=== PATIENT | male | born 1950 | race Caucasian/White ===

== ENCOUNTER 2018-05-13 10:16 | Outpatient (CLI) | payer BC | END 2018-05-13 10:17 | disposition home or self-care (01) | LOC: C.PAT 10:16 | DX: Z01.818 Encounter for other preprocedural examination (principal); K40.20 Bilateral inguinal hernia, without obstruction or gangrene, not specified as recurrent ==

== ENCOUNTER 2018-05-21 08:16 | Outpatient (CLI) | payer BC | END 2018-05-21 08:17 | disposition home or self-care (01) | LOC: C.CARD 08:17 | DX: Z01.810 Encounter for preprocedural cardiovascular examination (principal); E11.9 Type 2 diabetes mellitus without complications; I10 Essential (primary) hypertension; E78.2 Mixed hyperlipidemia ==

== ENCOUNTER 2018-06-02 06:03 | Day surgery (SDC) | payer BC ==
[2018-05-13 10:40] VITALS: BMI 18.1
[2018-06-02] MEDS ORDERED: Lidocaine/Epinephrine 1% 1:100000 10 ML IJ ONE (07:33)
[2018-06-02] MEDS ORDERED: Bupivacaine 0.25% 20 ML INJ IJ ONE (07:33)
[2018-06-02] MEDS ORDERED: ceFAZolin 1 gm in NS 2 GM/200 ML BAG IVPB ONE (07:33)
[2018-06-02] MEDS ORDERED: Midazolam 2 MG/2 ML VIAL ONE (07:47)
[2018-06-02] MEDS ORDERED: Propofol 10 mg/ml Inj (20 ML) ONE (07:47)
[2018-06-02] MEDS ORDERED: Bupivacaine Liposomal Inj 20 ml INFIL ONE (08:20)
[2018-06-02] MEDS ORDERED: Sodium Chloride 0.9% 40 ML IV ONE (08:52)
[2018-06-02] MEDS ORDERED: HYDROmorphone 0.5 mg/0.5 ml ISec IVP PRN (10:36)
[2018-06-02] MEDS ORDERED: (Novolin R) Insulin Human Regular 100 units/ml vial IVP ONE (10:51)
--- NOTE | 2018-06-02 12:11 | PCM.SURG1 ---
Surgeon's Initial Post Op Note - Surgeon's Notes Surgeon: Dorota Diez MD Clam Bed Worker: FRANKO Parada Type of Anesthesia: General Endo Pre-Operative Diagnosis: B/L inguinal hernia Operative Findings: B/L direct inguinal hernia Post-Operative Diagnosis: B/L direct inguinal hernia Operation Performed: Robotic B/L inguinal hernia repair with mesh. Lap B/L TAP block Specimen/Specimens Removed: Lipoma of Right hernial sac Estimated Blood Loss: EBL {In ML}: 10 Blood Products Given: N/A Drains Used: No Drains Post-Op Condition: Good Date of Surgery/Procedure: 06/02/18 Time of Surgery/Procedure: 12:10
--- NOTE | 2018-06-02 16:39 | OP ---
PROCEDURE DATE: 06/02/2018 PREOPERATIVE DIAGNOSIS: Bilateral inguinal hernia. POSTOPERATIVE DIAGNOSIS: Bilateral direct inguinal hernia. PROCEDURES DONE: 1. Robotic bilateral inguinal hernia repair with mesh. 2. Excision of the lipoma of the right hernial sac. 3. Laparoscopic bilateral transversus abdominis plane block placement. SURGEON: Salinas Diez MD ASSISTANTS: JACKELIN Parada ANESTHESIA: General endotracheal tube anesthesia. ESTIMATED BLOOD LOSS: Around 10 mL. DRAINS: None. SPECIMENS TO PATHOLOGY: The lipoma of the right hernial sac was sent for the pathology. COMPLICATIONS: None. INTRAOPERATIVE FINDINGS: The patient had bilateral direct inguinal hernia, and the patient also had a small lipoma of the right spermatic cord. DESCRIPTION OF PROCEDURE: On intraoperative steps, this is a 68-year-old male who was diagnosed with bilateral inguinal hernia, and the patient was consented for the robotic bilateral inguinal hernia repair with the mesh. The patient was brought to the OR, placed supine on the operating table. After induction of the anesthesia, the abdomen was prepped and draped in usual sterile fashion. A supraumbilical transverse incision was made using open technique. Peritoneal cavity was entered. Pneumo was created. Another 3.8-mm port was placed in upper abdomen. Robot was brought in. Camera arm as well as arm 1 and arm 2 were docked, and the peritoneum was dissected from the right ASIS up to the left ASIS. The medial dissection was done up to the space of Retzius. With the lateral dissection on the right side, the peritoneum was from the vas deferens and spermatic cord vessels, and the dissection was carried down to reduce the right-side hernial sac, and the inferior dissection was done up to the pelvic brim and now the similar dissection was done on the left side, and the peritoneum was from the lateral abdominal wall and vas deferens and spermatic cord vessels were . The dissection was carried down inferiorly up to the pelvic brim, and the large hernial sac was reduced back into the peritoneal cavity. The hernial sac was everted, and the transversalis fascia was tacked to the anterior abdominal wall, and now, the left and right anatomical mesh was placed. After proper placement of the mesh bilaterally, the peritoneum was sutured with 0 Vicryl interrupted suture and a 3-0 PDS continuous suture, and after that, the procedure was converted to laparoscopic, and bilateral TAP block was given; 30:30 mL of long-acting anesthetic was injected into the transverse abdominal muscle plane area, and after proper TAP block, all the ports were taken out under vision. Pneumo was deflated. Umbilical port site was closed in two-layers, the fascia with 0 Vicryl interrupted sutures, skin with a 4-0 Monocryl, and dry sterile dressing was applied. The patient tolerated the procedure well. Count of instrument was correct. There was no apparent complication. The patient was extubated in OR and sent to the postanesthesia care in stable condition. Salinas Diez MD
[2018-06-02] MEDS ORDERED: Oxycodone/Acetaminophen 5/325 mg Tab PO PRN ×2 (18:13)
[2018-06-02] MEDS ORDERED: Glucagon Recombinant 1 mg Inj IM PRN (18:17)
[2018-06-02] MEDS ORDERED: Dextrose 50% SYRINGE Inj (50 ml) IV PRN (18:17)
[2018-06-02] MEDS ORDERED: HYDROmorphone 0.5 mg/0.5 ml ISec ONE (20:11)
[2018-06-02] MEDS ORDERED: Lidocaine 2% Jelly (Uro-Jet) ONE (20:16)
[2018-06-02] MEDS ORDERED: HYDROmorphone 0.5 mg/0.5 ml ISec IVP STA (20:25)
[2018-06-02 21:50] VITALS: BP 116/60; PULSE 60; RESP 20; TEMP 98.7; O2SAT 95
[2018-06-02] MEDS ORDERED: Oxycodone/Acetaminophen 5/325 mg Tab PO STA (21:51)
--- NOTE | 2018-06-02 21:59 | CP.PCM.DIS ---
Provider - Provider Date of Admission: 06/02/18 18:11 Attending physician: Salinas Diez MD Consults: 06/02/18 16:07 Urology Consult Routine Comment: Consulting Provider: Jo Salazar Consulting Physician: Jo Salazar Reason for Consult: URINE RETENTION Time Spent in preparation of Discharge (in minutes): 60 Hospital Course - Lab Results Lab Results: Most Recent Lab Values POC Glucose (mg/dL) 173 mg/dL (65-110) H 06/02/18 21:35 - Hospital Course Hospital Course: 68 year old male, presents to [facility] for same day surgery of bilateral inguinal hernia repair with Dr. Diez. Patient tolerated the procedure however postoperatively experienced urinary retention secondary to hyposadias and urethral strictures. After multiple attempts at norman insertion, urology was consulted. Patient was examined by urologist Dr. Salazar who placed a norman. Patient is to go home with norman and follow up outpatient in 4 days for removal of norman by Dr. Salazar. Further instructions provided in discharge plan. Patient to follow up with Dr. Diez in 1-2 weeks. Above is a brief summary, for detailed records please refer to medical records. Discharge Exam - Head Exam Head Exam: ATRAUMATIC, NORMAL INSPECTION, NORMOCEPHALIC - Eye Exam Eye Exam: EOMI - ENT Exam ENT Exam: Mucous Membranes Moist - Respiratory Exam Respiratory Exam: absent: Respiratory Distress - Cardiovascular Exam Cardiovascular Exam: absent: Tachycardia - GI/Abdominal Exam GI & Abdominal Exam: Normal Bowel Sounds, Soft, Tenderness. absent: Distended, Guarding, Rebound Additional comments: incision dressings c/d/i abdominal pressure dressing intact - Exam Exam: absent: Bladder Distension Additional comments: Hypospadias with urethral strictures noted Norman in correct position - Neurological Exam Neurological exam: Alert, Oriented x3 - Psychiatric Exam Psychiatric exam: Normal Affect, Normal Mood Discharge Plan - Discharge Medications Prescriptions: Docusate [Colace] 100 mg PO DAILY #30 cap oxyCODONE/Acetaminophen [Percocet 5/325 mg Tab] 1 tab PO Q6H PRN #20 tab PRN Reason: Pain, Moderate (4-7) - Follow Up Plan Condition: GOOD Disposition: HOME/ ROUTINE Instructions: Abdominal Hernia Repair (DC) Additional Instructions: Please follow up with Dr. Diez in 1-2 weeks. Please follow up with the urologist, Dr. Salazar, within 5 days by calling his office to make an appointment. Norman will remain in place until your follow up appointment. You will go home with the norman attached to a leg bag. Nursing will teach you how to empty the bag and record the urine output daily. Per urologist, please increase Flomax - take one pill in the morning and one pill in the evening. Maximum dose 0.8mg/day. Please take pain medications as needed, use sparingly. Please resume all other home medications. Please resume regular diet as tolerated. Activity as tolerated. No heavy lifting greater than 15 pounds for the next 4-6 weeks. Remove dressings in 5 days. Steri-strips will fall off on their own, do not peel off. Ok to shower. Avoid baths, pools, or other large bodies of water for 2 weeks. If symptoms worsen, please return to the ED. Referrals: Salinas Diez MD [Staff Provider] - Jo Salazar MD [Staff Provider] -
[2018-06-02] MEDS ORDERED: (Novolin R) Insulin Human Regular 100 units/ml vial SC SCH (22:00)
--- NOTE | 2018-06-02 22:04 | CP.PCM.HP ---
History of Present Illness - History of Present Illness History of Present Illness: Surgery H&P Note for Dr. Diez 68 year old male, presents to same day surgery at [facility] for bilateral inguinal hernia repair with mesh. Patient tolerated the procedure, extubated and taken to PACU. Post-operatively, noted to have urinary retention with increasing discomfort. Patient was given Flomax which did not alleviate symptoms. Attempts at norman catheter insertions were made however due to patient's anatomy were unsuccessful. Urology consulted to aid in placement of norman catheter and further evaluation. PMH: DM, HTN PSH: Hernia Repair FH: Noncontributory SH: Denies tobacco, alcohol, drugs ALL: NKDA Meds: See MAR Present on Admission - Present on Admission Any Indicators Present on Admission: No Review of Systems - Constitutional Constitutional: absent: Chills, Fever - EENT Eyes: absent: Blurred Vision, Change in Vision Nose/Mouth/Throat: absent: Nasal Congestion, Nasal Discharge - Cardiovascular Cardiovascular: absent: Chest Pain, Dyspnea - Respiratory Respiratory: absent: Cough, Dyspnea - Gastrointestinal Gastrointestinal: absent: Abdominal Pain, Nausea, Vomiting - Genitourinary Genitourinary: Difficulty Urinating, Bladder Distension - Musculoskeletal Musculoskeletal: absent: Back Pain, Neck Pain - Integumentary Integumentary: absent: Bleeding Lesions, Changing Lesions - Neurological Neurological: absent: Confusion, Dizziness - Psychiatric Psychiatric: absent: Anxiety, Depression Past Patient History - Past Medical History & Family History Past Medical History?: Yes - Past Social History Smoking Status: Never Smoked - CARDIAC Hx Cardiac Disorders: Yes Hx Hypertension: Yes - ENDOCRINE/METABOLIC Hx Endocrine Disorders: Yes Hx Diabetes Mellitus Type 2: Yes - MUSCULOSKELETAL/RHEUMATOLOGICAL Hx Musculoskeletal Disorders: Yes Other/Comment: bilateral inguinal hernia repair - GENITOURINARY/GYNECOLOGICAL Hx Genitourinary Disorders: Yes Hx Prostate Problems: Yes - SURGICAL HISTORY Hx Surgeries: Yes Other/Comment: I/D RECTAL ABSCESS - ANESTHESIA Hx Anesthesia: Yes Hx Anesthesia Reactions: No Hx Malignant Hyperthermia: No Has any member of the family had a problem w/ anesthesia?: No Meds Home Medications: Home Medication List Medication Instructions Recorded Confirmed Type Docusate [Colace] 100 mg PO DAILY #30 cap 06/02/18 Rx oxyCODONE/Acetaminophen [Percocet 1 tab PO Q6H PRN #20 tab 06/02/18 Rx 5/325 mg Tab] Allergies/Adverse Reactions: Allergies Allergy/AdvReac Type Severity Reaction Status Date / Time No Known Allergies Allergy Verified 05/13/18 10:38 Physical Exam - Constitutional Appears: Non-toxic, No Acute Distress - Head Exam Head Exam: ATRAUMATIC, NORMAL INSPECTION, NORMOCEPHALIC - Eye Exam Eye Exam: EOMI - ENT Exam ENT Exam: Mucous Membranes Dry - Respiratory Exam Respiratory Exam: NORMAL BREATHING PATTERN. absent: Respiratory Distress - Cardiovascular Exam Cardiovascular Exam: REGULAR RHYTHM. absent: Tachycardia - GI/Abdominal Exam GI & Abdominal Exam: Normal Bowel Sounds, Soft, Tenderness. absent: Distended, Guarding, Rebound Additional comments: dressings c/d/i - Exam Exam: Bladder Distension Additional comments: Norman catheter placed - initial 800cc output - Back Exam Back exam: absent: CVA tenderness (L), CVA tenderness (R) - Neurological Exam Neurological exam: Alert, Oriented x3 - Psychiatric Exam Psychiatric exam: Normal Affect, Normal Mood - Skin Skin Exam: Dry, Intact, Normal Color, Warm Results - Vital Signs Recent Vital Signs: Last Vital Signs Temp 98.7 F 06/02/18 21:48 Pulse 60 06/02/18 21:48 Resp 20 06/02/18 21:48 BP 116/60 06/02/18 21:48 Pulse Ox 95 06/02/18 21:48 - Labs Labs: Laboratory Results - last 24 hr 06/02/18 06/02/18 06/02/18 06:35 10:44 21:35 POC Glucose (mg/dL) 141 H 285 H 173 H Assessment & Plan - Assessment and Plan (Free Text) Assessment: 68M s/p robot assisted bilateral inguinal hernia repairs with mesh complicated by post-operative urinary retention admitted for observation Plan: Norman placed by urology, Dr. Salazar - patient will go home with Norman and have it removed by urology in office in 4 days Patient advised to increase dose of Flomax to 0.8mg(Two 0.4mg pills/day) Patient to follow up with Dr. Diez in 1-2 weeks Discharge instructions provided, questions answered D/w Dr Rg England PGY1
--- NOTE | 2018-06-02 22:37 | CP.PCM.CON ---
History of Present Illness - History of Present Illness History of Present Illness: UROLOGY CONSULTATION IMP: URINARY RETENTION URETHRAL STRICTURE HYPOSPADIAS HX OF BPH S/P BILAT LAPAROSCOPIC HERNIA REPAIR THANK YOU. YS Past Patient History - Past Medical History & Family History Past Medical History?: Yes - Past Social History Smoking Status: Never Smoked - CARDIAC Hx Cardiac Disorders: Yes Hx Hypertension: Yes - ENDOCRINE/METABOLIC Hx Endocrine Disorders: Yes Hx Diabetes Mellitus Type 2: Yes - MUSCULOSKELETAL/RHEUMATOLOGICAL Hx Musculoskeletal Disorders: Yes Other/Comment: bilateral inguinal hernia repair - GENITOURINARY/GYNECOLOGICAL Hx Genitourinary Disorders: Yes Hx Prostate Problems: Yes - SURGICAL HISTORY Hx Surgeries: Yes Other/Comment: I/D RECTAL ABSCESS - ANESTHESIA Hx Anesthesia: Yes Hx Anesthesia Reactions: No Hx Malignant Hyperthermia: No Has any member of the family had a problem w/ anesthesia?: No Meds Home Medications: Home Medication List Medication Instructions Recorded Confirmed Type Docusate [Colace] 100 mg PO DAILY #30 cap 06/02/18 Rx oxyCODONE/Acetaminophen [Percocet 1 tab PO Q6H PRN #20 tab 06/02/18 Rx 5/325 mg Tab] Allergies/Adverse Reactions: Allergies Allergy/AdvReac Type Severity Reaction Status Date / Time No Known Allergies Allergy Verified 05/13/18 10:38 - Medications Medications: Current Medications Aspirin (Ecotrin) 81 mg PO DAILY MARTIN Dextrose (Dextrose 50% Inj) 0 ml IV STAT PRN; Protocol PRN Reason: Hypoglycemia Protocol Dextrose (Glutose 15) 0 gm PO ONCE PRN; Protocol PRN Reason: Hypoglycemia Protocol Enalapril Maleate (Vasotec) 2.5 mg PO DAILY MARTIN Folic Acid (Folic Acid) 1 mg PO DAILY MARTIN Glimepiride (Amaryl) 1 mg PO ACB MARTIN Glucagon (Glucagen Diagnostic Kit) 0 mg IM STAT PRN; Protocol PRN Reason: Hypoglycemia Protocol Dextrose (Dextrose 5% In Water 1000 Ml) 1,000 mls @ 0 mls/hr IV .Q0M PRN; Protocol PRN Reason: Hypoglycemia Protocol Insulin Human Regular (Novolin R) 0 unit SC ACHS MARTIN; Protocol Last Admin: 06/02/18 21:44 Dose: Not Given Oxycodone/Acetaminophen (Percocet 5/325 Mg Tab) 1 tab PO Q4H PRN PRN Reason: Pain, moderate (4-7) Stop: 06/05/18 18:14 Last Admin: 06/02/18 22:00 Dose: 1 tab Oxycodone/Acetaminophen (Percocet 5/325 Mg Tab) 2 tab PO Q6H PRN PRN Reason: Pain, severe (8-10) Stop: 06/05/18 18:14 Rosuvastatin Calcium (Crestor) 5 mg PO HS MARTIN Last Admin: 06/02/18 22:00 Dose: 5 mg Tamsulosin HCl (Flomax) 0.4 mg PO BID [facility] Results - Vital Signs Recent Vital Signs: Last Vital Signs Temp 98.7 F 06/02/18 21:48 Pulse 60 06/02/18 21:48 Resp 20 06/02/18 21:48 BP 116/60 06/02/18 21:48 Pulse Ox 95 06/02/18 21:48 - Labs Labs: Laboratory Results - last 24 hr 06/02/18 06/02/18 06/02/18 06:35 10:44 21:35 POC Glucose (mg/dL) 141 H 285 H 173 H Assessment & Plan - Date & Time Date: 06/02/18 Time: 20:30
== END 2018-06-02 22:30 | disposition home or self-care (01) ==
LOC: C.SDS 06:03 → C.9S 18:11 → UNDOADMOB 18:11 → C.3T 21:26 → C.9S 21:26 → UNDODISOB 22:30 → C.SDS 22:30
PROVIDERS: ATTEND Surgery Surgical Critical Care
DX: K40.20 Bilateral inguinal hernia, without obstruction or gangrene, not specified as recurrent (principal); D17.6 Benign lipomatous neoplasm of spermatic cord; R33.9 Retention of urine, unspecified; N35.919 Unspecified urethral stricture, male, unspecified site; Q54.9 Hypospadias, unspecified; I10 Essential (primary) hypertension; E11.9 Type 2 diabetes mellitus without complications; Z79.82 Long term (current) use of aspirin; Z79.4 Long term (current) use of insulin; Z79.899 Other long term (current) drug therapy
CPT/HCPCS: 49650; 51702; 55559; 64488; 82948; 88304; G0378; J0690; J1170; J2250; J2405; J2704; J3010